=== PATIENT | female | born 1965 | race Caucasian/White ===

== ENCOUNTER 2021-10-29 11:54 | Observation (INO) ==
[2021-10-29 12:31] LABS: Basophils # 0.1 K/mcL (0.0-0.2); Basophils % 0.8 %; Eosinophils # 0.5 K/mcL (0.0-0.6); Hematocrit 47.3 % (35.3-44.9); Hemoglobin 16.6 g/dL (11.5-15.4); Immature Granulocytes % 0.2 % (0-4); Lymphocytes # 1.9 K/mcL (0.6-4.6); Lymphocytes % 21.2 %; Mean Corpuscular HGB Conc 35.1 g/dL (31.6-35.5); Mean Corpuscular Hemoglobin 29.1 pg (28.0-33.3); Mean Platelet Volume 10.3 fL (9.4-12.4); Monocytes # 0.8 K/mcL (0.0-1.3); Monocytes % 9.4 %; Neutrophils # 5.6 K/mcL (1.6-8.9); Platelet Count 345 K/mcL (140-400); Red Cell Distribution Width 12.6 % (11.5-14.5); Segmented Neutrophils % 62.4 %; White Blood Count 8.9 K/mcL (4.3-11.1)
[2021-10-29 12:40] LABS: Prothrombin Time 11.2 Seconds (9.4-12.1)
[2021-10-29 12:43] LABS: Activated Partial Thrombo Time 32.4 Seconds (26.0-36.0); BUN/Creatinine Ratio 12 (6-26); Blood Urea Nitrogen 11 mg/dL (6-20); Calcium 10.4 mg/dL (8.6-10.3); Carbon Dioxide 27 mEq/L (23-29); Chloride 100 mEq/L (98-107); Glucose 117 mg/dL (70-105); Osmolality,Calculated 284 (280-300); Potassium 3.9 mEq/L (3.5-5.1); Sodium 137 mEq/L (136-145); eGFR For African Americans > 60 (> 60); eGFR For Non-African Americans > 60 (> 60)
[2021-10-29 12:47] LABS: Troponin I 0.24 ng/mL (< 0.04)
[2021-10-29] MEDS ORDERED: Heparin 25,000UNIT/250ML 1/2NS 25,000 UNIT/250 ML IV.SOLN IVC SCH (13:00)
[2021-10-29] MEDS ORDERED: *HR* Heparin 5,000 UNIT/ML VIAL IVP ONE (13:00)
[2021-10-29] MEDS ORDERED: *HR* Heparin 5,000 UNIT/ML VIAL IVP PRN ×2 (13:00)
[2021-10-29 13:12] LABS: Heparin anti-factor XA UFH < 0.04 IU/mL (0.30-0.70)
[2021-10-29] MEDS ORDERED: Naloxone 0.4 MG/ML INJ IVP PRN (13:50)
[2021-10-29] MEDS ORDERED: Perflutren Lipid Microsphere 1.3 ML in 0.9 % Sodium Chloride 8.7 ML IVP PRN (15:38)
[2021-10-29] MEDS ORDERED: *HR* Metoprolol 5 MG/5 ML VIAL IVP STA ×2 (16:15→16:40)
[2021-10-29] MEDS ORDERED: Nitroglycerin 0.4 MG TAB.SUBL SL PRN (16:27)
[2021-10-29] MEDS ORDERED: *HR* Metoprolol 5 MG/5 ML VIAL IVP ONE (16:36)
[2021-10-29] MEDS ORDERED: *HR* Heparin 10,000 UNIT/10 ML VIAL ONE (16:44)
[2021-10-29] MEDS ORDERED: Heparin 1,000 UNITS/500 mL 500 ML ONE (16:44)
[2021-10-29] MEDS ORDERED: Nitroglycerin 1,000 MCG/5 ML VIAL IV ONE (16:44)
[2021-10-29] MEDS ORDERED: ISOVUE-370 200 ML INFUS..BTL ONE (16:44)
[2021-10-29] MEDS ORDERED: 0.9 % Sodium Chloride 2,000 ML ONE (16:44)
[2021-10-29] MEDS ORDERED: carvediloL 6.25 MG TABLET PO SCH (17:00)
[2021-10-29] MEDS ORDERED: Acetaminophen 325 MG TABLET PO PRN ×2 (17:01→18:38)
[2021-10-29] MEDS ORDERED: *HR* FentaNYL (PF) 100 MCG/2 ML VIAL ONE ×2 (17:01→18:31)
[2021-10-29] MEDS ORDERED: *HR* Midazolam HCl 2 MG/2 ML VIAL ONE (17:01)
[2021-10-29] MEDS ORDERED: Tirofiban 12.5 MG/250ML 12.5 MG/250 ML BAG ONE (17:46)
[2021-10-29] MEDS ORDERED: D5% in Water 250 ML ONE (17:58)
[2021-10-29] MEDS ORDERED: *HR* Nitroprusside 50 MG VIAL IVC ONE (17:58)
[2021-10-29] MEDS ORDERED: *HR* Atropine Sulfate 1 MG/10 ML SYRINGE ONE (18:12)
[2021-10-29] MEDS ORDERED: *HR* Ticagrelor 90 MG TABLET ONE (18:33)
[2021-10-29] MEDS: *HR* Ticagrelor 90 MG TABLET PO SCH (20:19)
[2021-10-29] MEDS: Acetaminophen 325 MG TABLET PO PRN (22:08)
[2021-10-30 01:52] LABS: Basophils % 0.3 %; Eosinophils # 0.2 K/mcL (0.0-0.6); Eosinophils % 1.5 %; Hematocrit 42.4 % (35.3-44.9); Immature Granulocytes % 0.3 % (0-4); Lymphocytes # 1.6 K/mcL (0.6-4.6); Lymphocytes % 12.9 %; Mean Corpuscular HGB Conc 35.4 g/dL (31.6-35.5); Mean Corpuscular Hemoglobin 29.6 pg (28.0-33.3); Mean Corpuscular Volume 83.8 fL (83.0-100.0); Mean Platelet Volume 10.1 fL (9.4-12.4); Monocytes % 8.2 %; Neutrophils # 9.2 K/mcL (1.6-8.9); Platelet Count 403 K/mcL (140-400); Red Blood Count 5.06 M/mcL (3.82-4.97); Red Cell Distribution Width 12.7 % (11.5-14.5); Segmented Neutrophils % 76.8 %
[2021-10-30 02:08] LABS: BUN/Creatinine Ratio 14 (6-26); Blood Urea Nitrogen 12 mg/dL (6-20); Calcium 9.3 mg/dL (8.6-10.3); Carbon Dioxide 25 mEq/L (23-29); Chloride 103 mEq/L (98-107); Glucose 123 mg/dL (70-105); Osmolality,Calculated 287 (280-300); Potassium 3.4 mEq/L (3.5-5.1); Sodium 138 mEq/L (136-145); eGFR For African Americans > 60 (> 60); eGFR For Non-African Americans > 60 (> 60)
[2021-10-30] MEDS: Acetaminophen 325 MG TABLET PO PRN ×3 (02:38→20:22)
[2021-10-30] MEDS: Ondansetron 4 MG/2 ML VIAL IVP PRN ×2 (02:43→10:26)
[2021-10-30] MEDS: Aspirin Enteric Coated 81 MG Tablet PO SCH (08:37)
[2021-10-30] MEDS: *HR* Ticagrelor 90 MG TABLET PO SCH ×2 (08:37→20:22)
[2021-10-30] MEDS ORDERED: Aspirin 81 MG TAB.CHEW PO SCH (09:00)
[2021-10-30] MEDS: *HR* OxyCODONE/APAP 5/325 TABLET PO PRN (10:26)
[2021-10-30] MEDS: carvediloL 6.25 MG TABLET PO SCH ×2 (10:30→17:20)
[2021-10-30] MEDS: Isosorbide MONOnitrate (24 HR) 30 MG TAB.ER.24H PO SCH (10:31)
[2021-10-30] MEDS ORDERED: Ondansetron 4 MG/2 ML VIAL IVP PRN (10:34)
[2021-10-30] MEDS ORDERED: Pantoprazole 40 MG VIAL IVP ONE (13:29)
[2021-10-30 16:22] LABS: Alanine Aminotransferase 12 Units/L (7-52); Albumin 4.5 g/dL (3.5-5.7); Albumin/Globulin Ratio 1.4 (1.1-2.2); Alkaline Phosphatase 119 Units/L (34-104); Aspartate Amino Transferase 24 Units/L (13-39); Bilirubin,Direct 0.1 mg/dL (0.0-0.2); Bilirubin,Indirect 0.6 mg/dL (0.0-1.0); Bilirubin,Total 0.7 mg/dL (0.3-1.0); Globulin 3.2 g/dL (2.4-3.5); Lipase 48 Units/L (11-82); Total Protein 7.7 g/dL (6.4-8.9)
[2021-10-30] MEDS ORDERED: Sennosides/Docusate Sodium TABLET PO ONE (16:37)
[2021-10-30] MEDS ORDERED: carvediloL 6.25 MG TABLET PO SCH ×2 (17:00→17:20)
[2021-10-30] MEDS ORDERED: polyethylene glycoL 3350 17 GM POWD.PACK PO PRN (21:33)
[2021-10-31 02:04] LABS: Basophils % 0.3 %; Eosinophils # 0.2 K/mcL (0.0-0.6); Eosinophils % 1.6 %; Hematocrit 40.7 % (35.3-44.9); Hemoglobin 14.3 g/dL (11.5-15.4); Immature Granulocytes % 0.4 % (0-4); Lymphocytes # 0.9 K/mcL (0.6-4.6); Mean Corpuscular HGB Conc 35.1 g/dL (31.6-35.5); Mean Corpuscular Hemoglobin 29.1 pg (28.0-33.3); Mean Corpuscular Volume 82.9 fL (83.0-100.0); Mean Platelet Volume 10.1 fL (9.4-12.4); Monocytes # 1.1 K/mcL (0.0-1.3); Monocytes % 7.4 %; Neutrophils # 12.4 K/mcL (1.6-8.9); Platelet Count 355 K/mcL (140-400); Red Blood Count 4.91 M/mcL (3.82-4.97); Red Cell Distribution Width 12.5 % (11.5-14.5); Segmented Neutrophils % 84.3 %; White Blood Count 14.8 K/mcL (4.3-11.1)
[2021-10-31 02:22] LABS: Chol/HDL Ratio 5.5 (0-4.9)
[2021-10-31 02:24] LABS: BUN/Creatinine Ratio 12 (6-26); Blood Urea Nitrogen 9 mg/dL (6-20); Calcium 9.4 mg/dL (8.6-10.3); Carbon Dioxide 24 mEq/L (23-29); Chloride 97 mEq/L (98-107); Glucose 136 mg/dL (70-105); Magnesium 1.9 mg/dL (1.6-2.6); Osmolality,Calculated 281 (280-300); Potassium 3.3 mEq/L (3.5-5.1); Sodium 135 mEq/L (136-145); eGFR For African Americans > 60 (> 60); eGFR For Non-African Americans > 60 (> 60)
[2021-10-31] MEDS ORDERED: polyethylene glycoL 3350 17 GM POWD.PACK PO ONE (08:05)
[2021-10-31] MEDS: Aspirin Enteric Coated 81 MG Tablet PO SCH (09:17)
[2021-10-31] MEDS: *HR* Ticagrelor 90 MG TABLET PO SCH (09:17)
[2021-10-31] MEDS: Isosorbide MONOnitrate (24 HR) 30 MG TAB.ER.24H PO SCH (09:19)
[2021-10-31 10:05] LABS: Bilirubin,Urine Negative (Negative); Blood,Urine Negative (Negative); Clarity,Urine Clear (Clear); Color,Urine Yellow (Yellow); Glucose,Urine (UA) Normal (Normal); Ketones,Urine Negative (Negative); Leukocyte Esterase,Urine Negative (Negative); Nitrite,Urine Negative (Negative); Protein,Urine Trace mg/dL (Neg-Trace); Specific Gravity,Urine 1.015 (1.010-1.025); Urobilinogen,Urine Normal (Normal)
[2021-10-31 10:41] VITALS: BP 106/65; PULSE 97; TEMP 98.6; O2SAT 93
[2021-10-31] MEDS ORDERED: Isovue-370 500 ML BOTTLE IVP ONE (12:03)
[2021-10-31] MEDS: *HR* OxyCODONE/APAP 5/325 TABLET PO PRN (12:06)
[2021-10-31] MEDS ORDERED: 0.9 % Sodium Chloride 500 ML IVC SCH (12:15)
[2021-10-31] MEDS ORDERED: Milk and Molasses Enema 200 ML RC ONE (13:15)
== END 2021-10-31 16:08 | disposition home or self-care (01) ==
LOC: EMEROOARM 11:54 → 2NENU 11:54 → SUATTDRO 13:17 → 2NENU 14:05
PROVIDERS: ADMIT Student in an Organized Health Care Education/Training Program; ATTEND Internal Medicine